=== PATIENT | male | born 2000 | race Caucasian/White ===

== ENCOUNTER 2018-04-12 08:14 | Day surgery (SDC) | payer BC, SELFPAY ==
[2018-04-12] MEDS ORDERED: Fentanyl 250 MCG/5 ML VIAL ONE (09:34)
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
[2018-04-12] MEDS ORDERED: cefOXitin 2 GM VIAL ONE (09:43)
[2018-04-12] MEDS ORDERED: Midazolam HCl 2 mg/2 ml Vial ONE (09:43)
[2018-04-12] MEDS ORDERED: Sodium Chloride 0.9% 100 ML ONE (09:44)
[2018-04-12] MEDS ORDERED: Bupivacaine/Epinephrine 0.25% 30 ML VIAL ONE (10:27)
[2018-04-12] MEDS ORDERED: Fentanyl 100 MCG/2 ML VIAL ONE (11:59)
--- NOTE | 2018-04-12 12:24 | OP ---
DATE OF PROCEDURE: 04/12/2018 PREOPERATIVE DIAGNOSIS: Acute appendicitis. SURGEON: Maximus Barnett M.D. PROCEDURE PERFORMED: Laparoscopic appendectomy. INDICATIONS: A 17-year-old male who reports a 12-hour history of mid abdominal pain, which migrates to the right lower quadrant. CT showed appendicitis. FINDINGS: Acute suppurative nonperforated appendicitis. PROCEDURE IN DETAIL: After informed consent was obtained, the patient was taken to the operating gerry m and given general endotracheal anesthesia. He was placed in the supine position. The abdomen was prepped and draped in the usual fashion. Local anesthesia infiltrated subcutaneously and deep. A scherer bumbilical incision was performed. The subcu divided sharply. The fascia grasped and 2 stay sutures of 0 Vicryl placed to either side of midline. Midline incised. Digital palpation revealed no local adhesions. A blunt 10-12 mm trocar inserted. Pneumoperitoneum was created to a pressure of 15 mmHg . A 0-degree laparoscope was inserted under direct vision. Two 5-mm ports were placed, one suprapub ic and one right lateral abdomen. The appendix was down into the pelvis as well as cecum. It was fo und. The mesoappendix divided utilizing the LigaSure. The base of the appendix was divided utilizin g the linear 45 mm white load stapler. The appendix was placed in an Endosac and removed from the ab domen in an Endosac. Hemostasis was assured. The abdomen irrigated and irrigation fluid removed. T rocars and retractors removed. The fascia closed with interrupted 0 Vicryl suture. The skin was zeferino sed with interrupted 4-0 Rapide. Dermabond applied. The patient tolerated the procedure well and wa s transferred to recovery in good condition. Sponge and needle count verified correct x2.
[2018-04-12] MEDS ORDERED: Promethazine HCl 25 MG/ML VIAL ONE (12:39)
[2018-04-12] MEDS ORDERED: HYDROcodone/Acetaminophen 5/325 mg Tablet ONE (14:05)
[2018-04-12] MEDS ORDERED: Ondansetron ODT 4 MG TAB ONE (14:31)
[2018-04-12] MEDS ORDERED: Ondansetron PF 4 MG/2 ML Vial ONE (14:36)
[2018-04-12] MEDS ORDERED: Lidocaine 1% PF 5 ML VIAL ONE (14:36)
[2018-04-12] MEDS ORDERED: Ketorolac Tromethamine 30 MG/ML VIAL ONE (14:36)
[2018-04-12] MEDS ORDERED: Glycopyrrolate 0.2 MG/ML 5 ML SYRINGE ONE (14:36)
[2018-04-12] MEDS ORDERED: PROPOFOL 200 MG/20 ML VIAL ONE (14:36)
== END 2018-04-12 14:45 | disposition home or self-care (01) ==
LOC: SDC 08:14
PROVIDERS: ATTEND Surgery
PROC: 0DTJ4ZZ Resection of Appendix, Percutaneous Endoscopic Approach (ICD-10-PCS; principal; 2018-04-12)
DX: K35.80 Unspecified acute appendicitis (principal); K21.9 Gastro-esophageal reflux disease without esophagitis; Z79.899 Other long term (current) drug therapy
CPT/HCPCS: 88304; 96374; 96375; J0694; J1885; J2001; J2250; J2405; J2550; J2704; J3010; J7050; Q0162